=== PATIENT | female | born 1935 | race Caucasian/White ===

== ENCOUNTER 2019-05-29 00:21 | Day surgery (SDC) | payer MEDICARE, SELFPAY ==
[2019-05-15 15:49] VITALS: BMI 21.4
[2019-05-29] MEDS: LACTATED RINGERS 1,000 ML 30 ML IV CONT (10:25)
[2019-05-29 10:30] VITALS: PULSE 57; RESP 18; TEMP 36.2; O2SAT 95
--- NOTE | 2019-05-29 10:34 | WPDANESEPPF ---
Anes - Initial Pre Proc Eval Procedure: Operation Date: 05/29/19 12:00 Proposed Procedures p Excision Squamous Cell Carcinoma Left Lower Eyelid With Frozen Section - Jackson Ambrocio MD Date/Time: 05/29/19 10:34 Surgeon: Jackson Ambrocio MD Pre Op Diagnosis: Squamous Cell Carcinoma Left Lower Eyelid Patient Data Age: 83 Gender: F Height: 5 ft 5 in Weight: 58.6 kg Allergies Allergy/AdvReac Type Severity Reaction Status Date / Time Penicillins Allergy Severe Swelling Verified 05/15/19 15:37 ceftriaxone [From Rocephin] Allergy Intermediate Rash Verified 05/15/19 15:37 fluocinolone acetonide Allergy unknown Verified 05/15/19 15:37 [From Flac Otic Oil] indomethacin [From Indocin] Allergy unknown Verified 05/15/19 15:37 Home Medications Medication Instructions Recorded Confirmed Type aspirin 81 mg tablet,delayed 81 mg PO DAILY 04/16/19 05/15/19 History release isosorbide dinitrate 30 mg tablet 30 mg PO BID 04/16/19 05/15/19 History losartan 50 mg-hydrochlorothiazide 1 tablet PO DAILY 04/16/19 05/15/19 History 12.5 mg tablet tamsulosin 0.4 mg capsule 0.4 mg PO DAILY 04/16/19 05/15/19 History umeclidinium 62.5 mcg/actuation 1 inhalation INHALATION DAILY 04/16/19 05/15/19 History blister powder for inhalation amlodipine 205 mg PO DAILY 05/15/19 05/15/19 History calcium carbonate [Calcium 600] 600 mg PO DAILY 05/15/19 05/15/19 History fluticasone propion-salmeterol 1 inh INHALATION DAILY 05/15/19 05/15/19 History [Advair Diskus] metoprolol tartrate 25 mg PO BID 05/15/19 05/15/19 History nitroglycerin 0.4 mg SUBLINGUAL DAILY PRN 05/15/19 05/15/19 History pravastatin 20 mg PO DAILY 05/15/19 05/15/19 History Patient hx anesthesia problems: none Family hx anesthesia problems: none PMFSH Past Medical History Medical History (Updated 05/29/19 @ 10:28 by Bryan Garza MD) Arthritis COPD (chronic obstructive pulmonary disease) Hyperlipidemia Hypertension Anes - Eval Final PreProcedure Day of Procedure 05/29/19 10:34 Patient weight: normal Heart: regular rate and rhythm Lungs: clear to auscultation Airway: Mallampati scale class II Neurological: alert and oriented Last oral intake: >/= 8 hours ASA classification: III Emergent: no Anesthetic plan: proceed Anesthesia type and monitoring: general (use LMA and GIVS) GIVS and standard monitoring Informed Consent: The patient's anesthetic plan and its attendant risks and benefits were discussed with the patient/family/POA. Questions were solicited and answers provided to the satisfaction of the patient/family/POA.
[2019-05-29 11:02] VITALS: BP 162/59
--- NOTE | 2019-05-29 12:23 | SUR.PREOP ---
1220 PT AND DAUGHTER UPDATED WITH ESTIMATED TIME OF SURGERY. PT RECENTLY UP TO RESTROOM WITH USE OF SHREYA VELÁZQUEZ. DENIES NEEDS AT THIS TIME.
--- NOTE | 2019-05-29 14:10 | PM.IMHP ---
H&P: HPI History of Present Illness Chief complaint: Squamous Cell Carcinoma Left Lower Eyelid Narrative: Yvonne Nobles is a 83 year old female with SCC from left mid lower lid. She would lide to proceed with excision with frozen section. Review of Systems Review of Systems: All systems reviewed & are unremarkable except as noted in HPI and below PMFSH Past Medical History Medical History (Updated 05/29/19 @ 14:15 by Jackson Ambrocio MD) Arthritis COPD (chronic obstructive pulmonary disease) Hyperlipidemia Hypertension Meds Home Medications and Allergies Home Medications Medication Instructions Recorded Confirmed Type aspirin 81 mg tablet,delayed 81 mg PO DAILY 04/16/19 05/15/19 History release isosorbide dinitrate 30 mg tablet 30 mg PO BID 04/16/19 05/15/19 History losartan 50 mg-hydrochlorothiazide 1 tablet PO DAILY 04/16/19 05/15/19 History 12.5 mg tablet tamsulosin 0.4 mg capsule 0.4 mg PO DAILY 04/16/19 05/15/19 History umeclidinium 62.5 mcg/actuation 1 inhalation INHALATION DAILY 04/16/19 05/15/19 History blister powder for inhalation amlodipine 205 mg PO DAILY 05/15/19 05/15/19 History calcium carbonate [Calcium 600] 600 mg PO DAILY 05/15/19 05/15/19 History fluticasone propion-salmeterol 1 inh INHALATION DAILY 05/15/19 05/15/19 History [Advair Diskus] metoprolol tartrate 25 mg PO BID 05/15/19 05/15/19 History nitroglycerin 0.4 mg SUBLINGUAL DAILY PRN 05/15/19 05/15/19 History pravastatin 20 mg PO DAILY 05/15/19 05/15/19 History Allergies Allergy/AdvReac Type Severity Reaction Status Date / Time Penicillins Allergy Severe Swelling Verified 05/29/19 10:54 ceftriaxone [From Rocephin] Allergy Intermediate Rash Verified 05/29/19 10:54 fluocinolone acetonide Allergy unknown Verified 05/29/19 10:54 [From Flac Otic Oil] indomethacin [From Indocin] Allergy unknown Verified 05/29/19 10:54 Vital Signs Vital Signs - 24 hr 05/29/19 10:30 05/29/19 11:02 Temperature 36.2 C L Pulse Rate 57 L Respiratory Rate 18 Blood Pressure 162/59 H Pulse Oximetry 95 Exam Const: General: comfortable and no acute distress HENMT: General nose exam: Normal nares present Eyes: Pupils: Equal, round and reactive pupils present EOM: EOMs intact bilaterally Other: left lower lid with ulcerated area at previous SCC bx site. Moderate lid laxity with sluggish snapback. 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 Risks, benefits, alternatives discussed. Understands risk of blindness. All questions answered to satisfaction. Consent obtained. (2) COPD (chronic obstructive pulmonary disease): Code(s): J44.9 - Chronic obstructive pulmonary disease, unspecified Status: Acute (3) Arthritis: Code(s): M19.90 - Unspecified osteoarthritis, unspecified site Status: Acute (4) Hyperlipidemia: Code(s): E78.5 - Hyperlipidemia, unspecified Status: Acute (5) Hypertension: Code(s): I10 - Essential (primary) hypertension Status: Acute
[2019-05-29] MEDS: CLINDAMYCIN 900 MG/NS 50 ML 900 MG/50 ML PIGGYBACK 50 MG IVPB (14:44)
[2019-05-29] MEDS: LIDO 1%/EPINEPHRINE 1:100,000 20 ML VIAL INFILTRATE (15:10)
--- NOTE | 2019-05-29 15:12 | SUR.OPER ---
Frozen section sent with LASHAUN Elizabeth and received in pathology by Emerson
--- NOTE | 2019-05-29 15:48 | PM.PROC ---
Procedure Note - Detailed Date of procedure: 05/29/19 Pre-op diagnosis: Squamous Cell Carcinoma Left Lower Eyelid Post-op diagnosis: same Procedure performed: Excision left lower eyelid SCC 0.8cm Description of procedure: She was marked in the preoperative holding area with her her family's verification. She was taken to the operating room placed supine on the operating table. Anesthesia provided by anesthesiology and prepped and draped in a standard sterile fashion. Surgical time-out was taken. 1% lidocaine and 0.25% Marcaine with epinephrine was used anesthetize locally. I surgically excised is a wedge excision of the lesion of the left lower eyelid. This was sent to pathology. We had clear margins this measured 0.8 cm in size. Verified strict hemostasis. Reapproximated the tarsal plate with a 4-0 Vicryl. I then repaired the ragsdale line with 6 0 fast-absorbing gut in the left detail long 2nd suture this in the ties of the inferior sutures. I closed the length of this with a 6 0 fast-absorbing gut. Irrigated with BSS. Bacitracin ophthalmic placed. She tolerated the procedure well. She was awoke and taken to PACU without difficulty. All instrument sponge counts were correct at the end of the case. Anesthesia: MAC Surgeon: Jackson Ambrocio MD Estimated blood loss (mL): 1 Drains: No Packing: No Pathology: yes (Left lower eye SCC) Complications: No immediate complications Condition: stable Disposition: PACU Findings: Pathology showed clear margins. Questionable SCC versus atypical proliferation on this pathology. Previously biopsy-proven SCC.
[2019-05-29 15:55] VITALS: BP 105/57; PULSE 66; RESP 12; O2SAT 95
[2019-05-29 16:15] VITALS: BP 106/60; PULSE 67; RESP 16
[2019-05-29 16:45] VITALS: BP 147/68; PULSE 64; RESP 16
[2019-05-29 17:10] VITALS: BP 132/69; PULSE 70; RESP 16
== END 2019-05-29 17:17 | disposition home or self-care (01) ==
PROVIDERS: PCP Internal Medicine; Visit Provider Surgery Plastic and Reconstructive Surgery
PROC: (CPT 11441; principal; 2019-05-29 12:00)
DX: L11.0 Acquired keratosis follicularis (principal); I10 Essential (primary) hypertension; E78.5 Hyperlipidemia, unspecified; J44.9 Chronic obstructive pulmonary disease, unspecified; M19.90 Unspecified osteoarthritis, unspecified site; Z79.82 Long term (current) use of aspirin
CPT/HCPCS: 11441; 12051; 88305; 88331; A9270; J2704; J3010; J7120